=== PATIENT | male | born 1990 | race Caucasian/White ===

== ENCOUNTER 2024-09-25 12:26 | Emergency (ER) | payer OTHER, SELFPAY ==
[2024-09-25 12:30] VITALS: BP 149/90
--- NOTE | 2024-09-25 13:40 | ED.GENMED ---
History of Present Illness
General
Chief Complaint: Headache
Source: patient
Exam Limitations: none
Time Seen by Provider: 09/25/24 13:28
Nursing documentation reviewed up to this point in time: agreed with
History of Present Illness
History of Present Illness:
Patient presents to ED secondary to persistent headache, along with dizziness, nausea sensation, and bilateral hand clammy sensation over the past 1 week. Denies fever or chills. Denies sore throat or neck pain. Denies rash. Denies blurred
vision. Denies dizziness. Denies loss of sensation or weakness. Denies difficulty with speech or swallowing. Denies recent infection. Denies recent travel. Denies sick contact. Denies recent change in medications or diet. Patient states that
although he does have history of migraine headache, today's headache appears to be different in quality.
Past History
Past History
ED Past Medical History: Asthma
ED Past Surgical History: Appendectomy and Other (Inguinal hernia X 2)
Social History
Tobacco: Non-smoker
Alcohol: Occasional
Drug: None
Personal:
Living: with family
Employment: Employed
Review of Systems
Review of Systems
Allergies reviewed?: Yes
All Other Systems: ROS reviewed and negative except as documented in HPI and ROS
Constitutional: Reports no symptoms; Denies fever
Respiratory: Reports no symptoms
Cardiac: Reports no symptoms
ABD/GI: Reports nausea; Denies vomiting or diarrhea
: Reports no symptoms
Musculoskeletal: Reports no symptoms; Denies muscle pain
Skin: Reports no symptoms
Neurological: Reports dizzy and headache; Denies weakness or numbness
Phy Exam
Physical Exam
Physical Exam:
Physical Exam
General: mild distress, not acutely ill. afebrile
Head: nc/at. eomi. no nystagmus noted.
Neck: supple. no meningeal signs.
Heart: s1/s2 regular rate and rhythm
Lungs: no acute respiratory distress. clear bilaterally
Abdomen: normal bowel sounds. not tender.
Neuro: alert and oriented x 3. no focal neurological deficits. normal speech
Skin: no rash
Psychiatric: well kept. interactive and cooperative
Extremities: no edema. no calf tenderness.
Course
Orders/Labs/Results
Orders:
Orders
09/25/24 13:45
CT Head W/o Iv Contrast Urgent
Comment:
Reason For Exam: headache
0.9% Sodium Chloride 1000 ml [Nss] 1,000 ml IV BOLUS
Ketorolac [Toradol] 15 mg IV NOW STA
Ondansetron Injectable [Zofran] 4 mg IV NOW STA
Pantoprazole [Protonix IV] 40 mg IV NOW STA
09/25/24 14:32
Complete Blood Count/With Diff Urgent
Comprehensive Metabolic Panel Urgent
Lyme Progressive Urgent
Magnesium Urgent
09/25/24 16:14
Diphenhydramine [Benadryl] 12.5 mg IV NOW STA
Metoclopramide [Reglan] 10 mg IV NOW STA
09/25/24 16:21
Rizatriptan Orally Disintegrat [Maxalt Potato Grader (Orally Disintegrating)] 10 mg PO ONCE ONE
Abnormal Lab Results
09/25/24
14:32
Calcium 10.5 H mg/dl
(8.4-10.2)
Albumin 5.3 H g/dl
(3.5-5.0)
09/25/24 14:32
09/25/24 14:32
Vital Signs
Initial and Last Documented VS:
Initial Vital Signs
Temp Pulse Resp BP Pulse Ox
97.7 F 61 16 149/90 100
09/25/24 12:30 09/25/24 12:30 09/25/24 12:30 09/25/24 12:30 09/25/24 12:30
Last Documented Vital Signs
Temp Pulse Resp BP Pulse Ox
97.7 F 61 16 149/90 100
09/25/24 12:30 09/25/24 12:30 09/25/24 12:30 09/25/24 12:30 09/25/24 13:42
MDM/Problems Addressed
MDM/Problems Addressed:
Patient with an unremarkable workup in ED, including blood work and CT head.
Lyme titer pending.
Patient reports mild improvement symptoms after treatment. Otherwise, patient remains afebrile, hemodynamically stable, and neurologically intact. Discussed with on-call neurology, Dr. Daley, who does not feel that any further imaging studies
indicated at this time. Recommends offering Maxalt for symptom relief along with neurology follow-up as an outpatient. When discussed with patient, he reports having Ubrelvy at home, that he takes as needed for abortive migraine headache, which he
will continue. Advised close follow-up with his neurologist for reevaluation, or consider return to ED with worsening symptoms.
*Pulse Oximetry
SaO2: 100
Oxygen Mode of Delivery: Room air
Patient hypoxic: no
*Critical Care Note
Total Time (30-74mins, 75-104mins- exclusive of procedures): Not Applicable
ED Attending Note
-
Portions of this chart may have been created with voice recognition software.� Occasional wrong word or��sound alike� substitutions may have occurred due to the inherent limitations of voice recognition software.
Discharge Plan
Departure
Patient Disposition: Home (Routine Discharge)
Date of Disposition: 09/25/24
Time of Disposition: 16:32
Patient with high blood pressure during this ER visit?: Yes
Condition: Fair
Discharge Problem:
Headache, Dizziness
Instructions: Headache, Adult (DC), Dizziness in adults - ED discharge instructions
Prescriptions:
No Action
rifaximin [Xifaxan] 200 MG tablet
200 mg PO TID Qty: 9 0RF
cephalexin 250 mg capsule
250 mg PO QID 7 Days Qty: 28 0RF
Referrals:
Norma Rao MD [Family Provider, Internal Medicine]
Activity Restrictions/Additional Instructions:
As discussed, please follow-up with your neurologist for reevaluation, or consider return to ED with worsening symptoms.
Interventions
Interventions:
*Risk Screen - Suicide Last Done: 09/25/24 12:31
*General Assessment Last Done: 09/25/24 14:00
*Neglect/Abuse Screening Last Done: 09/25/24 12:31
*ED- Fall Risk Assessment Last Done: 09/25/24 14:55
*ED COVID-19 Vaccine History Last Done: 09/25/24 14:00
*Nursing Disposition Last Done: 09/25/24 17:30
ED- Neurological Assessment Last Done: 09/25/24 14:00
Discharge Date and Time
Discharge Date/Time: 09/25/24 17:31
Print Language: GHANAIAN
[2024-09-25] MEDS: NSS 1000 IV (14:40)
[2024-09-25] MEDS: ZOFRAN 4 MG IV (14:41)
[2024-09-25] MEDS: PROTONIX IV 40 MG IV (14:41)
[2024-09-25] MEDS: TORADOL 15 MG IV (14:42)
[2024-09-25 15:17] LABS: Hematocrit 49.2 % (39.0-52.0); Hemoglobin 16.7 g/dL (13.0-18.0); Mean Corp Hgb Conc. 33.9 g/dL (33.0-37.0); Mean Corpuscular Volume 87.9 fL (80.0-94.0); Nucleated Red Blood Cells % 0 % (-); Platelet Count 289 10^3/uL (130-400); Red Cell Dist. Width 13.2 % (11.5-14.5)
[2024-09-25 15:24] LABS: ALT (SGPT) 35 U/L (0-50); AST (SGOT) 27 U/L (17-59); Albumin 5.3 g/dl (3.5-5.0); Alkaline Phosphatase 46 U/L (38-126); Blood Urea Nitrogen 14 mg/dl (9-20); Calcium 10.5 mg/dl (8.4-10.2); Carbon Dioxide 28 mmol/L (22-30); Chloride 104 mmol/L (98-107); Glucose 94 mg/dl (70-99); Magnesium 2.2 mg/dl (1.6-2.3); Potassium 4.8 mmol/L (3.5-5.1); Sodium 141 mmol/L (135-145); Total Protein 8.1 g/dl (6.3-8.2); eGFR > 60.00
[2024-09-25] MEDS: BENADRYL 12.5 MG IV (16:21)
[2024-09-25] MEDS: REGLAN 10 MG IV (16:22)
[2024-09-25 16:27] VITALS: BMI 31.2
[2024-09-28 15:31] LABS: Lyme Antibody Screen, EIA Equivocal (Negative)
== END 2024-09-25 17:31 | disposition home or self-care (01) ==
LOC: EMR 12:26
PROVIDERS: EMERGENCY PHYSICIAN Emergency Medicine; FAMILY PHYSICIAN Hospitalist
DX: R51.9 Headache, unspecified (principal); R42 Dizziness and giddiness; R03.0 Elevated blood-pressure reading, without diagnosis of hypertension; J45.909 Unspecified asthma, uncomplicated
CPT/HCPCS: 99284; 96374; 96375 ×4; 70450; 80053; 83735; 85025; 86617; 86618

== ENCOUNTER → 2024-10-17 10:07 | Outpatient (REF) | payer OTHER, SELFPAY | LOC: RCS 10:07 | PROVIDERS: ATTENDING PHYSICIAN Hospitalist | DX: R42 Dizziness and giddiness (principal) | CPT/HCPCS: 93225; 93226 ==